=== PATIENT | female | born 1990 | race Caucasian/White ===

== ENCOUNTER 2017-04-20 16:27 | Emergency (ER) | payer OTHER ==
[~2017-04-20] VITALS: Ht 165.1 cm; Wt 52.2 kg
[~2017-04-20 16:27] MED LIST: AUGMENTIN 875-1 EACH PO; BACTRIM DS TAB1 EACH PO; CYCLOBENZAPRINE10 M1 PO; MOBIC15 M1 PO; PERCOCET 5-3251 EACH PO; TRAMADOL HCL50 M1 PO
[2017-04-20 16:39] VITALS: BP 138/83
--- NOTE | 2017-04-20 16:53 | ED ANIMAL BITE/WOUND CHECK ---
History of Present Illness General Chief Complaint: Suture Removal/Wound Recheck Stated Complaint: "[facility] IM HERE FOR LIKE A WOUND CHECK" Source: patient, old records Exam Limitations: no limitations Vital Signs & Intake/Output Vital Signs & Intake/Output ED Intake and Output 04/21 0000 04/20 1200 Intake Total Output Total Balance Patient 115 lb Weight Allergies Coded Allergies: lamotrigine (From LAMICTAL) (HIVES 02/20/17) quetiapine (From SEROQUEL) (BREATHING DIFFICULTY/PSYCHOTIC 02/20/17) Reconcile Medications Amoxicillin/Potassium Clav (Augmentin 875-125 Tablet) 875 MG-125 MG TABLET 1 TAB PO BID abscess Cyclobenzaprine HCl 10 MG TABLET 1 TAB PO QPM PRN MUSCLE RELAXOR Meloxicam (Mobic) 15 MG TABLET 1 TAB PO DAILY PRN PAIN Oxycodone HCl/Acetaminophen (Percocet 5-325 MG Tablet) 5 MG-325 MG TABLET 1 TAB PO ONCE PAIN (Reported) Sulfamethoxazole/Trimethoprim (Bactrim Ds Tablet) 800 MG-160 MG TABLET 1 TAB PO BID abscess Tramadol HCl 50 MG TABLET 1 TAB PO BIDP PRN pain Triage Note: PT HERE FOR WOUND CHECK TO HER L ANTECUBITAL AREA. PT IS ON ABT AT HOME Triage Nurses Notes Reviewed? yes Onset: Gradual Duration: week(s):, better Timing: single episode today Injury Environment: home Is Injury an Animal Bite? No No Modifying Factors: none LMP (ages 10-50): unknown : No Patient currently breastfeeds: No HPI: 27-year-old female past medical history of anxiety, depression presents for a wound check. Patient had excision and drainage of an abscess in her left antecubital area done about one week ago. She's been taking antibiotics as directed. She feels like it is much better. No spreading redness swelling or purulent discharge. She states that the abscess pocket is filling in nicely. Oh fever. No pain with range of motion of the elbow. (Andrei Lawrence) Past History Travel History Traveled to [place] past 21 day No Medical History Any Pertinent Medical History? see below for history Neurological: NONE EENT: NONE Cardiovascular: NONE Respiratory: NONE Gastrointestinal: NONE Hepatic: NONE Renal: NONE Musculoskeletal: NONE Psychiatric: anxiety, depression, ADHD Endocrine: NONE Surgical History Surgical History: none, non-contributory Psychosocial History What is your primary language Khmer Tobacco Use: Current Daily Use Daily Tobacco Use Amount/Type: => 5 Cigarettes daily ETOH Use: denies use Illicit Drug Use: denies illicit drug use Family History Hx Contributory? No (Andrei Lawrence) Review of Systems Review of Systems Constitutional: Reports: no symptoms. EENTM: Reports: no symptoms. Respiratory: Reports: no symptoms. Cardiovascular: Reports: no symptoms. GI: Reports: no symptoms. Genitourinary: Reports: no symptoms. Musculoskeletal: Reports: no symptoms. Skin: Reports: see HPI, erythema, lesions. Neurological/Psychological: Reports: no symptoms. Hematologic/Endocrine: Reports: no symptoms. Immunologic/Allergic: Reports: no symptoms. All Other Systems: Reviewed and Negative (Andrei Lawrence) Physical Exam Physical Exam General Appearance: well developed/nourished, no apparent distress, alert, awake , thin Head: atraumatic, normal appearance Eyes: Bilateral: normal appearance, EOMI. Ears, Nose, Throat: normal pharynx, normal ENT inspection, hearing grossly normal Neck: normal inspection, supple, full range of motion Respiratory: no respiratory distress Cardiovascular: normal peripheral pulses Peripheral Pulses: 2+ radial (R), 2+ radial (L) Extremities: THERE IS A WELL-HEALED ABSCESS IN THE LEFT ANTECUBITAL AREA. nO STRANDING ERYTHEMA NO FOCAL FLUCTUANT AREAS NO INDURATION. fULL RANGE OF MOTION OF THE LEFT ELBOW IS INTACT. nEUROVASCULAR SUPPLY INTACT. nO LYMPHATIC STREAKING Neurologic/Psych: no motor/sensory deficits, awake, alert, oriented x 3, normal gait Skin: intact, normal color, warm/dry (Andrei Lawrence) Progress Differential Diagnosis: abscess, cellulitis, joint infection, tenosysnovitis Plan of Care: Seen and evaluated. Her abscess is healing well. No signs of spreading infection. Advised to finish out about it for the full course. Apply warm compresses keep the area clean and dry Browder for signs of worsening infection. Follow-up with primary care doctor. Discussed return to cautions patient appears well and agrees the plan (Andrei Lawrence) Departure Departure Disposition: HOME OR SELF CARE Condition: Stable Clinical Impression Primary Impression: Wound check, abscess Referrals: Juan De Anda MD (PCP/Family) Additional Instructions: FINISH ANTIBIOTICS FOR FULL COURSE. KEEP THE AREA CLEAN AND DRY. APPLY WARMJ COMPRESSESS FOR 15-20 MIN EVERY FEW HOURS. LOOK OUT FOR SIGNS OF INFECTION LIKE SPREADING RENDESS, SWELLING PAIN OR FEVER. RETURN WITH ANY CONCERNS. Departure Forms: Customer Survey General Discharge Information (Andrei Lawrence) PA/BRAIN WAVE TECHNICIAN Co-Sign Statement Statement: ED Attending supervision documentation- [] I saw and evaluated the patient. I have also reviewed all the pertinent lab results and diagnostic results. I agree with the findings and the plan of care as documented in the PA's/BRAIN WAVE TECHNICIAN's documentation. [X] I have reviewed the ED Record and agree with the PA's/BRAIN WAVE TECHNICIAN's documentation. [] Additions or exceptions (if any) to the PAs/BRAIN WAVE TECHNICIAN's note and plan are summarized below: [] (Obi VAZQUEZ,Harinder Alex)
== END 2017-04-20 16:58 ==
LOC: ERH 16:27
DX: Z48.00 Encounter for change or removal of nonsurgical wound dressing (principal)

== ENCOUNTER 2017-05-11 06:21 | Emergency (ER) | payer OTHER ==
[~2017-05-11] VITALS: Ht 165.1 cm; Wt 52.2 kg
--- NOTE | 2017-05-11 07:01 | ED GENERAL ADULT ---
History of Present Illness General Chief Complaint: General Adult Stated Complaint: VIRGEN, RIGHT FOOT PAIN, ABCESSES ON LEFT ARM Source: patient, old records Exam Limitations: no limitations Vital Signs & Intake/Output Vital Signs & Intake/Output Vital Signs Date Time Temp Pulse Resp B/P B/P Pulse O2 O2 Flow FiO2 Mean Ox Delivery Rate 05/11 0820 99 Room Air 05/11 0800 98.2 100 20 122/61 98 Room Air 05/11 0642 99.1 110 16 118/72 96 Room Air Room Air Allergies Coded Allergies: lamotrigine (From LAMICTAL) (HIVES 02/20/17) quetiapine (From SEROQUEL) (BREATHING DIFFICULTY/PSYCHOTIC 02/20/17) Reconcile Medications Amoxicillin/Potassium Clav (Augmentin 875-125 Tablet) 875 MG-125 MG TABLET 1 TAB PO BID abscess Cyclobenzaprine HCl 10 MG TABLET 1 TAB PO QPM PRN MUSCLE RELAXOR Meloxicam (Mobic) 15 MG TABLET 1 TAB PO DAILY PRN PAIN Oxycodone HCl/Acetaminophen (Percocet 5-325 MG Tablet) 5 MG-325 MG TABLET 1 TAB PO ONCE PAIN (Reported) Sulfamethoxazole/Trimethoprim (Bactrim Ds Tablet) 800 MG-160 MG TABLET 1 TAB PO BID abscess Tramadol HCl 50 MG TABLET 1 TAB PO BIDP PRN pain Triage Note: 27YO FEMALE TO TRIAGE W/CO R FT PAIN SINCE YESTERDAY. ALSO CO VIRGEN X 3 D. NO RELIEF AFTER EXCEDRIN. DENIES ANY TRAUMA OR FALL. ALSO CO ?ABCESS TO L FOREARM SP USING IV DRUGS. Triage Nurses Notes Reviewed? yes : No Patient currently breastfeeds: No HPI: Patient presents to the emergency department with 3 separate complaints. First complaint is an intermittent headache that she's had over the past 3 days. The headache is worse when she leans forward. The pain is frontal and radiates around both sides of her head. The pain is throbbing and tight. She rates the pain as moderate. She denies any blurry vision. She denies any URI symptoms however does state she occasionally gets sinus congestion. There is no nausea or vomiting. She denies any fevers or chills. Patient's second complaint is pain to the outside of her right foot. The pain is throbbing in nature. There is no radiation. There is no known trauma. She rates the pain as moderate. The pain is worse with walking. Patient also noticed a bump in the area. Patient's third complaint is 2 abscesses to her left forearm after IVDA. She denies any pain. Past History Travel History Traveled to [place] past 21 day No Medical History Any Pertinent Medical History? see below for history Neurological: NONE EENT: NONE Cardiovascular: NONE Respiratory: NONE Gastrointestinal: NONE Hepatic: NONE Renal: NONE Musculoskeletal: NONE Psychiatric: anxiety, depression, ADHD Endocrine: NONE Surgical History Surgical History: none, non-contributory Psychosocial History What is your primary language Salvadorean Tobacco Use: Current Daily Use Daily Tobacco Use Amount/Type: => 5 Cigarettes daily ETOH Use: occasional use Illicit Drug Use: heroin Family History Hx Contributory? No Review of Systems Review of Systems Constitutional: Reports: no symptoms. EENTM: Reports: no symptoms. Respiratory: Reports: no symptoms. Cardiovascular: Reports: no symptoms. GI: Reports: no symptoms. Genitourinary: Reports: no symptoms. Musculoskeletal: Reports: see HPI. Skin: Reports: see HPI. Neurological/Psychological: Reports: see HPI, headache. Hematologic/Endocrine: Reports: no symptoms. Immunologic/Allergic: Reports: no symptoms. All Other Systems: Reviewed and Negative Physical Exam Physical Exam General Appearance: well developed/nourished, alert, awake, anxious, mild distress Head: atraumatic, normal appearance Eyes: Bilateral: PERRL, EOMI. Ears, Nose, Throat: normal pharynx, normal ENT inspection, hearing grossly normal Neck: normal inspection, supple, full range of motion, NOMENENGEAL SIGNS Respiratory: normal breath sounds, chest non-tender, no respiratory distress, lungs clear Cardiovascular: regular rate/rhythm, normal peripheral pulses Gastrointestinal: normal bowel sounds, soft, non-tender, no organomegaly Back: normal inspection, normal range of motion Extremities: normal inspection, normal capillary refill, normal range of motion, no edema Neurologic/Psych: no motor/sensory deficits, awake, alert, oriented x 3, normal gait, normal mood/affect Skin: intact, normal color, warm/dry, 2 SMALL INDURATED AREAS ON LEFT FOREARM, NO FLUCTUENCE, OVERLYING ERYTHEMA, NO THENDERNESS OUTSIDE OF ERYTHEMATOUS AREA. Lymphatic: NO AXIALLRY ADENOPATHY Core Measures ACS in differential dx? No CVA/TIA Diagnosis: No Sepsis Present: No Sepsis Focused Exam Completed? No Progress Differential Diagnoses I considered the following diagnoses in my evaluation of the patient: [ABSCESS/ CELLULITIS, SINUSITIS, TENSION HEADACHE, FOOT FRACTURE, FOOT SPRAIN] Plan of Care: Orders Procedure Date/time Status URINE 05/11 699 Complete Laboratory Tests 05/11/17 0757: Urine Test NEGATIVE Diagnostic Imaging: Viewed by Me: Radiology Read, CT Scan. Discussed w/RAD: Radiology Read, CT Scan. Radiology Impression: PATIENT: PRATIK DAUGHERTY PRESENT AGE: 27 PATIENT ACCOUNT NO: [id number] : 88 LOCATION: [facility] ORDERING PHYSICIAN: Harinder Crocker MD SERVICE DATE: 05/11/17 EXAM TYPE: CAT - CT HEAD WO IV CONTRAST EXAMINATION: CT HEAD WITHOUT CONTRAST CLINICAL INFORMATION: Headache COMPARISON: None TECHNIQUE: Contiguous axial imaging was performed from the skull base to vertex without intravenous administration of contrast. Axial images are provided. DLP: 602 mGy-cm FINDINGS: There is no intracranial hemorrhage, hematoma, or extra-axial fluid collection. The ventricles are normal in size. There is no hydrocephalus, edema, or mass effect. The breen-white matter differentiation appears symmetric. There is no visible acute territorial infarct or mass lesion. Visualized orbits are unremarkable. The calvarium appears intact. There is no pneumocephalus or orbital emphysema. The visualized sinuses and middle ears and mastoid air cells show no significant mucosal thickening. There are no air-fluid levels. IMPRESSION: Normal study. DICTATED BY: Guy Martins MD DATE/TIME DICTATED:05/11/17854 BRICK OFF BEARER:CARROL DATE/TIME TRANSCRIBED:05/11/17854 CONFIDENTIAL, DO NOT COPY WITHOUT APPROPRIATE AUTHORIZATION. <Electronically signed in Other Vendor System> SIGNED BY: Guy Martins MD 05/11/17 0905, PATIENT: PRATIK DAUGHERTY PRESENT AGE: 27 PATIENT ACCOUNT NO: [id number] : 88 LOCATION: [facility] ORDERING PHYSICIAN: Harinder Crocker MD SERVICE DATE: 05/11/17 EXAM TYPE: RAD - XRY-FOOT COMPLETE, R EXAMINATION: XR FOOT, RIGHT CLINICAL INFORMATION: Pain fifth metatarsal. Trauma. COMPARISON: None TECHNIQUE: AP, lateral, and oblique views of the right foot. FINDINGS: The bones and soft tissues are normal. No fracture. Alignment is anatomic. Joint spaces are maintained. IMPRESSION: Normal right foot. DICTATED BY: Sidra Witt MD DATE/TIME DICTATED:05/11/17917 BRICK OFF BEARER:CARROL DATE/TIME TRANSCRIBED:05/11/17917 CONFIDENTIAL, DO NOT COPY WITHOUT APPROPRIATE AUTHORIZATION. <Electronically signed in Other Vendor System> SIGNED BY: Sidra Witt MD 05/11/17922 Initial ED EKG: none Comments: Headache resolved after Toradol and Flexeril. Patient has been updated on CAT scan and x-ray findings. Patient instructed to return in 48 hours for reevaluation of her left forearm. Question answered. Departure Departure Disposition: HOME OR SELF CARE Condition: Stable Clinical Impression Primary Impression: Headache Secondary Impressions: Abscess, Right foot sprain Referrals: Juan De Anda MD (PCP/Family) Additional Instructions: TAKE ANTIBIOTIC PRESCRIBED RETURN IN 2 DAYS FOR A RE-CHECK OF YOUR LEFT FOREARM OR SOONER FOR ANY CONCERNS Departure Forms: Customer Survey General Discharge Information Prescriptions: Current Visit Scripts Amoxicillin 1 CAP PO TID #21 CAP Sulfamethoxazole/Trimethoprim (Bactrim Ds Tablet) 1 TAB PO BID #14 TAB Critical Care Note Critical Care Note Critical Care Time: non-applicable
--- NOTE | 2017-05-11 09:05 | CT SCAN REPORT ---
EXAMINATION: CT HEAD WITHOUT CONTRAST CLINICAL INFORMATION: Headache COMPARISON: None TECHNIQUE: Contiguous axial imaging was performed from the skull base to vertex without intravenous administration of contrast. Axial images are provided. DLP: 602 mGy-cm FINDINGS: There is no intracranial hemorrhage, hematoma, or extra-axial fluid collection. The ventricles are normal in size. There is no hydrocephalus, edema, or mass effect. The breen-white matter differentiation appears symmetric. There is no visible acute territorial infarct or mass lesion. Visualized orbits are unremarkable. The calvarium appears intact. There is no pneumocephalus or orbital emphysema. The visualized sinuses and middle ears and mastoid air cells show no significant mucosal thickening. There are no air-fluid levels. IMPRESSION: Normal study.
--- NOTE | 2017-05-11 09:23 | RADIOLOGY REPORT ---
EXAMINATION: XR FOOT, RIGHT CLINICAL INFORMATION: Pain fifth metatarsal. Trauma. COMPARISON: None TECHNIQUE: AP, lateral, and oblique views of the right foot. FINDINGS: The bones and soft tissues are normal. No fracture. Alignment is anatomic. Joint spaces are maintained. IMPRESSION: Normal right foot.
[2017-05-11] MEDS ORDERED: AMOXICILLIN250 M3 PO (09:29)
[2017-05-11] MEDS ORDERED: BACTRIM DS TAB1 EACH PO (09:29)
[2017-05-11 09:32] VITALS: BP 115/79
== END 2017-05-11 09:33 ==
LOC: ERH 06:21
DX: S93.601A Unspecified sprain of right foot, initial encounter (principal); R51 Headache; L02.413 Cutaneous abscess of right upper limb; X58.XXXA Exposure to other specified factors, initial encounter; Y93.9 Activity, unspecified; Y92.9 Unspecified place or not applicable
CPT/HCPCS: 73630-RT; 81025; 96372; J1885

== ENCOUNTER 2017-09-24 05:21 | Emergency (ER) | payer OTHER ==
[~2017-09-24] VITALS: Ht 167.6 cm; Wt 56.7 kg
[~2017-09-24 05:21] MED LIST changes: +AMOXICILLIN250 M3 PO
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
[2017-09-24 05:46] LABS: ABSOLUTE BASOPHIL COUNT 0.1 /CUMM (0.0-0.2); ABSOLUTE EOSINOPHIL COUNT 0 /CUMM (0.0-0.7); ABSOLUTE GRANULOCYTE CT 4.1 /CUMM (1.4-6.5); ABSOLUTE LYMPH COUNT 1.7 /CUMM (1.2-3.4); ABSOLUTE MONOCYTE COUNT 0.5 /CUMM (0.10-0.60); BASOPHIL % 0.8 % (0.0-2.0); EOSINOPHIL % 0.6 % (0-5); GRANULOCYTE % 63.5 % (42.2-75.2); HEMATOCRIT 44.3 % (37-47); MEAN CORPUSCULAR HGB 28.6 PG (27.0-31.0); MEAN CORPUSCULAR HGB CONC 33.4 G/DL (33.0-37.0); MEAN CORPUSCULAR VOLUME 85.6 FL (81.0-99.0); MEAN PLATELET VOLUME 7.2 FL (7.4-10.4); PLATELET COUNT 262 /CUMM (130-400); RBC DISTRIBUTION WIDTH 14.6 % (11.5-14.5); RED BLOOD CELL CT 5.17 /CUMM (4.20-5.40); WHITE BLOOD CELL COUNT 6.4 /CUMM (4.8-10.8)
[2017-09-24 06:52] VITALS: BP 105/61
[2017-09-24] MEDS ORDERED: IBUPROFEN800 M1 PO (06:56)
[2017-09-24] MEDS ORDERED: PERCOCET 5-3251 EACH PO (06:56)
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
== END 2017-09-24 08:24 ==
LOC: ERH 05:21
PROVIDERS: Pediatrics
DX: S09.90XA Unspecified injury of head, initial encounter (principal); S50.311A Abrasion of right elbow, initial encounter; S70.211A Abrasion, right hip, initial encounter; S80.211A Abrasion, right knee, initial encounter; T14.8XXA Other injury of unspecified body region, initial encounter; F10.129 Alcohol abuse with intoxication, unspecified; X58.XXXA Exposure to other specified factors, initial encounter
CPT/HCPCS: 73080-RT; 73502-RT; 73562-RT; 73610-RT; 74176; 96372; G0480; J1885